=== PATIENT | male | born 1950 | race Caucasian/White ===

== ENCOUNTER 2020-11-09 14:48 | Inpatient (IN) | payer OTHER ==
[~2020-11-09] VITALS: Ht 182.9 cm; Wt 81.2 kg
[2020-11-09 15:56] LABS: BASOPHILS ABSOLUTE AUTO 0.03 K/mm3 (0.00-0.23); BASOPHILS PERCENT AUTO 0 % (0-2); EOSINOPHILS PERCENT AUTO 1 % (0-6); Hematocrit 45.5 % (37.0-53.0); Hemoglobin 15.6 g/dL (13.5-17.5); IMMATURE GRAN ABSOLUTE AUTO 0.03 K/mm3 (0.00-0.10); IMMATURE GRAN PERCENT AUTO 0 % (0-1); LYMPHOCYTES ABSOLUTE AUTO 2.18 K/mm3 (0.84-5.20); LYMPHOCYTES PERCENT AUTO 30 % (21-46); MONOCYTES ABSOLUTE AUTO 0.78 K/mm3 (0.16-1.47); MONOCYTES PERCENT AUTO 11 % (4-13); Mean Corpuscular HGB 32.1 pg (26.0-34.0); Mean Corpuscular HGB Conc 34.3 g/dL (31.5-36.5); Mean Corpuscular Volume 94 fL (80-100); NEUTROPHILS ABSOLUTE AUTO 4.14 K/mm3 (1.96-9.15); NEUTROPHILS PERCENT AUTO 57 % (41-73); Platelet Count 126 K/mm3 (150-400); RDW Coefficient Variation 13.2 % (11.7-14.2); RDW Standard Deviation 44.8 fL (35.1-46.3); Red Blood Cell Count 4.86 M/mm3 (4.30-5.90); White Blood Cell Count 7.26 K/mm3 (4.00-11.30)
[2020-11-09] MEDS ORDERED: FOLI1 PO ×2 (16:00→18:03)
[2020-11-09] MEDS ORDERED: B-1100 M2 PO (16:00)
[2020-11-09 16:10] LABS: International Normalized Ratio 0.97; Prothrombin Time Results 10.5 Sec (9.7-11.5)
[2020-11-09 16:16] LABS: Alanine Aminotransfer (ALT/SGP 34 U/L (12-78); Albumin/Globulin Ratio 1.1 (0.8-1.8); Alk Phos 69 U/L (50-136); Anion Gap 3 mmol/L (6-16); Aspartate Aminotrans (AST/SGOT 31 U/L (12-37); Bilirubin, Total 0.7 mg/dL (0.1-1.0); Blood Urea Nitrogen 15 mg/dL (8-24); CO2, Blood 28 mmol/L (21-32); Calcium, Blood 9.1 mg/dL (8.5-10.1); Chloride, Blood 106 mmol/L (98-108); Creatinine, Blood 0.94 mg/dL (0.60-1.20); Ethanol (Alcohol), Blood, Med <3 mg/dL; Globulin, Blood 3.7 g/dL (2.2-4.0); Glomerular Filtration Rate >60 (60-); Glucose, Blood 101 mg/dL (70-99); Magnesium, Blood 2.1 mg/dL (1.6-2.4); Potassium, Blood 3.7 mmol/L (3.5-5.5); Sodium, Blood 137 mmol/L (136-145); Total Protein, Blood 7.7 g/dL (6.4-8.2); Troponin I <0.015 ng/mL (0.000-0.040)
[2020-11-09 17:06] LABS: Source, Urine Clean Catch
[2020-11-09 17:35] LABS: Appearance, Urine Clear (Clear); Bilirubin, Urine Neg (Neg); Blood, Urine Neg (Neg); Color, Urine Yellow (P-Yellow); Glucose Qualitative, Urine Neg (Neg); Ketones, Urine 1+ (Neg); Leukocyte Esterase, Urine 1+ (Neg); Nitrite, Urine Neg (Neg); Protein, Urine Neg (Neg); Specific Gravity, Urine 1.015 (1.003-1.022); Urobilinogen, Urine NORM (Normal)
[2020-11-09] MEDS ORDERED: GABA600 PO (17:59)
[2020-11-09] MEDS ORDERED: NEURONTIN300 MG PO (18:00)
[2020-11-09] MEDS ORDERED: Hydroxyzine HCl50 MG PO (18:01)
[2020-11-09] MEDS ORDERED: XARELTO20 MG PO (18:02)
[2020-11-09] MEDS ORDERED: Naltrexone HCl50 MG PO (18:02)
[2020-11-09] MEDS ORDERED: METO25 PO (18:02)
[2020-11-09] MEDS ORDERED: MULTIPLE VITAM1 EACH PO (18:03)
[2020-11-09] MEDS ORDERED: B-1100 M1 PO (18:03)
[2020-11-09] MEDS ORDERED: MELATONIN5 M1 PO (18:04)
[2020-11-09] MEDS ORDERED: OMEP20ER PO (18:04)
[2020-11-09] MEDS ORDERED: FURO20 PO (18:04)
[2020-11-09] MEDS ORDERED: PROM25 PO (18:04)
[2020-11-09] MEDS ORDERED: ESCI10 PO (18:04)
[2020-11-09] MEDS ORDERED: NORTRIPTYLINE H10 M1 PO (18:04)
[2020-11-09 18:07] LABS: Bacteria Mod /hpf; Red Blood Cells, Urine 0-2 /hpf (0-2); Squamous Epithelial Cells Rare /hpf (Few); White Blood Cells, Urine 0-2 /hpf (0-5)
[2020-11-09 21:11] LABS: Influenza A, PCR NEGATIVE (NEGATIVE); Influenza B, PCR NEGATIVE (NEGATIVE); Resp Syncytial Virus, PCR NEGATIVE (NEGATIVE); SARS-Cov-2 (COVID-19) PCR, MMC NEGATIVE (NEGATIVE)
--- NOTE | 2020-11-10 05:18 | NUR ---
SHIFT SUMMARY RECIEVED PATIENT FROM ED AT APPROXIMETLY 2100. PATIENT FOUND TO BE A&OX3 BUT ACTIVELY HALLUCINATING OTHER PEOPLE IN THE ROOM. TREMORS, SWEATING, ANXIETY, AND AGITATION NOTED ON CIWA. ATIVAN X3 AND LIBRIUM X2 GIVEN OVERNIGHT.AGITATION COMES AND GOES. FOLLOWS COMMANDS AND HINTON. SEIZURE PRECAUTIONS IN PLACE. VSS. ON RA. SR ON THE MONITOR. PASSED BEDSIDE SWALLOW SO STARTED CARDIAC DIET PER MD REQUEST.SOME NAUSEA NOTED AFTER EATING BUT OTHERWISE TOLERATED WELL. UP WITH ONE TO BATHROOM. UNABLE TO COMPLETE ADMISSION UNTIL MENTATION CLEARS. NO ACUTE CONCERNS AT THIS TIME. WILL CONTINUE TO MONITOR.
[2020-11-10 06:17] LABS: BASOPHILS ABSOLUTE AUTO 0.03 K/mm3 (0.00-0.23); BASOPHILS PERCENT AUTO 1 % (0-2); EOSINOPHILS ABSOLUTE AUTO 0.16 K/mm3 (0.00-0.68); EOSINOPHILS PERCENT AUTO 3 % (0-6); Hematocrit 44.3 % (37.0-53.0); Hemoglobin 15.2 g/dL (13.5-17.5); IMMATURE GRAN ABSOLUTE AUTO 0.02 K/mm3 (0.00-0.10); IMMATURE GRAN PERCENT AUTO 0 % (0-1); LYMPHOCYTES ABSOLUTE AUTO 2.07 K/mm3 (0.84-5.20); LYMPHOCYTES PERCENT AUTO 36 % (21-46); MONOCYTES ABSOLUTE AUTO 0.66 K/mm3 (0.16-1.47); MONOCYTES PERCENT AUTO 11 % (4-13); Mean Corpuscular HGB 32.7 pg (26.0-34.0); Mean Corpuscular HGB Conc 34.3 g/dL (31.5-36.5); Mean Corpuscular Volume 95 fL (80-100); Mean Platelet Volume 10.2 fL (9.1-12.4); NEUTROPHILS ABSOLUTE AUTO 2.89 K/mm3 (1.96-9.15); NEUTROPHILS PERCENT AUTO 50 % (41-73); Platelet Count 115 K/mm3 (150-400); RDW Coefficient Variation 13.2 % (11.7-14.2); RDW Standard Deviation 46.2 fL (35.1-46.3); Red Blood Cell Count 4.65 M/mm3 (4.30-5.90); White Blood Cell Count 5.83 K/mm3 (4.00-11.30)
[2020-11-10 06:43] LABS: Anion Gap 2 mmol/L (6-16); Blood Urea Nitrogen 10 mg/dL (8-24); Bun/Creatinine Ratio 11.3 (12.0-20.0); CO2, Blood 31 mmol/L (21-32); Calcium, Blood 8.5 mg/dL (8.5-10.1); Chloride, Blood 106 mmol/L (98-108); Creatinine, Blood 0.89 mg/dL (0.60-1.20); Glomerular Filtration Rate >60 (60-); Glucose, Blood 108 mg/dL (70-99); Potassium, Blood 3.9 mmol/L (3.5-5.5); Sodium, Blood 139 mmol/L (136-145)
--- NOTE | 2020-11-10 09:09 | NUR ---
ASSUMED CARE FROM LILIANE RN, MORNING UPDATE PT WAS AWAKE DURING REPORT. PT IS ALERT AND ORIENTED THIS MORNING. PT WAS ABLE TO TAKE MORNING MEDICATION AND HAVE BREAKFAST WITHOUT ISSUES OF ASPIRATION, BEDSIDE SWALLOW STUDY WAS COMPLETED BY LILIANE SHIFT RN, SPEECH THERAPY TO EVALUATE PT TODAY. PT IS CONCERNED ABOUT HIS BELONGINGS BEING KEPT AT [facility], HE HAS BEEN REMINDED FREQUENTLY THAT THEY ARE LOCKED UP AT [facility] AND ARE NOT HERE AT THE HOSPITAL WITH HIM. VS STABLE, CIWA COMPLETED DURING MORNING ASSESSMENT. PT RESTING IN BED AT THIS TIME
--- NOTE | 2020-11-10 10:42 | NUR ---
RECEIVED REPORT FROM OFF GOING RN AND ASSUMED CARE OF THE PT. HE IS SITTING UP IN BED WATCHING TV. HE DENIES ANY DISCOMFORT AT THIS TIME. HE CONTINUES TO BE IMPULSIVE BUT IS REDIRECTABLE. HE IS VISIBLE FROM THE NURSES STATION WITH FREQUENT ROUNDING.
--- NOTE | 2020-11-10 17:38 | NUR ---
Shift Summary Pt has been alert to himself and the situation at times today. He can tell you that he is in a hospital but not which one or what city we are in. He has been asking about his belongings and a call was made to [facility] to see if they have his bag there with no answer as of now. He has a very good appetite. He takes his meds with no issues and his iv meds/fluids have been infusing as ordered. He does continue to be impulsive and try to get out of bed at times but for the most part he calls for help when he needs something. He has the urinal at the bedside and the call light in reach. Last CIWA was 4.
--- NOTE | 2020-11-11 00:47 | NUR ---
SHIFT SUMMARY PATIENT FOUND TO A&OX4, HINTON, AND FOLLOWING COMMANDS. CIWA SCORE 0 AND VERY PLEASANT THIS SHIFT. VSS. ON RA. NSR ON THE MONITOR. NO PAIN OR DISTRESS NOTED UPON ASSESSMENT. IV ABX AND FLUIDS INFUSING PER ORDER. UP WITH ONE ASSIST TO BATHROOM BUT HAS URGENCY AND INCONTINENCE AT TIMES.ATTENDS IN PLACE. FALL AND SWALLOW PRECAUTIONS IN PLACE. REPORT GIVEN TO CLARITZA ON MEDICAL FLOOR AND CARE ENDORSED CARE TO HER @ 3703.
--- NOTE | 2020-11-11 00:58 | NUR ---
PT TX FROM PCU TO ROOM 309. THIS RN ASSUMES CARE OF PT AT THIS TIME.
[2020-11-11 04:44] LABS: BASOPHILS ABSOLUTE AUTO 0.03 K/mm3 (0.00-0.23); BASOPHILS PERCENT AUTO 1 % (0-2); EOSINOPHILS ABSOLUTE AUTO 0.17 K/mm3 (0.00-0.68); EOSINOPHILS PERCENT AUTO 3 % (0-6); Hematocrit 43.8 % (37.0-53.0); Hemoglobin 15.2 g/dL (13.5-17.5); IMMATURE GRAN ABSOLUTE AUTO 0.02 K/mm3 (0.00-0.10); IMMATURE GRAN PERCENT AUTO 0 % (0-1); LYMPHOCYTES ABSOLUTE AUTO 1.96 K/mm3 (0.84-5.20); LYMPHOCYTES PERCENT AUTO 32 % (21-46); MONOCYTES ABSOLUTE AUTO 0.72 K/mm3 (0.16-1.47); MONOCYTES PERCENT AUTO 12 % (4-13); Mean Corpuscular HGB 33.2 pg (26.0-34.0); Mean Corpuscular HGB Conc 34.7 g/dL (31.5-36.5); Mean Corpuscular Volume 96 fL (80-100); Mean Platelet Volume 10.6 fL (9.1-12.4); NEUTROPHILS PERCENT AUTO 53 % (41-73); Platelet Count 115 K/mm3 (150-400); RDW Coefficient Variation 13.2 % (11.7-14.2); RDW Standard Deviation 46.4 fL (35.1-46.3); Red Blood Cell Count 4.58 M/mm3 (4.30-5.90)
[2020-11-11 04:59] LABS: Anion Gap -1 mmol/L (6-16); Blood Urea Nitrogen 8 mg/dL (8-24); Bun/Creatinine Ratio 7.4 (12.0-20.0); CO2, Blood 32 mmol/L (21-32); Calcium, Blood 8.2 mg/dL (8.5-10.1); Chloride, Blood 108 mmol/L (98-108); Creatinine, Blood 1.08 mg/dL (0.60-1.20); Glomerular Filtration Rate >60 (60-); Glucose, Blood 94 mg/dL (70-99); Potassium, Blood 4.5 mmol/L (3.5-5.5); Sodium, Blood 139 mmol/L (136-145)
--- NOTE | 2020-11-11 05:46 | NUR ---
PT TX FROM PCU THIS SHIFT, A/O, FOGETFUL AT TIMES. TELE MONITOR IN SR. SWALLOW AND SEIZURE PRECAUIONS. USES CANE WITH 1-ASSIST TO AMBULATE. PT BELONGINGS ARE STILL AT [facility]. PT TO HAVE BARIUM SWALLOW THURSDAY.
--- NOTE | 2020-11-11 19:09 | NUR ---
SHIFT SUMMARY: PT A&O; INCREASING ANXIETY ; MEDICATED PER EMAR; COOPERATIVE WITH CARE. POOR ORAL INTAKE THIS SHIFT. PER ART HISTORY INSTRUCTOR, 6-BEAT RUN OF V-TACH; DR NAZARIO; BETA MICHA ADDED. IV ABX & BANANA BAG CONTINUING. REPORT GIVEN TO ONCOMING RN.
--- NOTE | 2020-11-12 05:46 | NUR ---
PT IS A/O, FORGETFUL AT TIMES, WORRIED THAT HIS BELONGINGS ARE AT [facility] WHERE HE CAME FROM. PT DID BECOME ANXIOUS WITH TREMORS EARLY THIS AM AND A LIBRIUM WAS GIVEN PER EMAR. BARIUM SWALLOW EXPECTED TODAY, PT IS ON SEIZURE AND SWALLOW PRECAUTIONS, NECTAR THICK LIQUIDS. TELE IN SR.
--- NOTE | 2020-11-12 18:18 | NUR ---
SHIFT SUMMARY- PT IS A/O, PLESANT AND COOPERATIVE. HE IS EATING AND DRINKING WELL. HE IS RECIEVING IV ABX. HIS CIWAS WERE D/C THIS SHIFT. HE IS USING THE URINAL. HIS BED IS IN THE LOW POSITION AND CALL LIGHT IS WITIN REACH.
--- NOTE | 2020-11-13 04:13 | NUR ---
SHIFT SUMMARY NO ACUTE CHANGES THIS SHIFT, REFUSED PO FLUIDS, STATING THAT THE THICKENED "DOESN'T QUENCH MY THIRST," SLEPT T/O THE SHIFT, WAKING EASILY FOR CARE THEN RETURNING TO SLEEP, BELONGINGS DROPPED OFF TO PT'S ROOM TONIGHT (IPAD, WATCH, TUTORING ASSISTANT, BOOKS & WALLET), PT AWARE; SLEEPING AT THIS TIME, CALL LIGHT IN REACH, WILL CONT TO MONITOR UNTIL REPORT GIVEN TO DAY RN.
--- NOTE | 2020-11-13 17:59 | NUR ---
SHIFT SUMMARY- PT IS A/O, PLESANT AND COOPERATIVE. HE WENT FOR A MODIFIED SWALLOW EVALUATION AND IT WAS DETERMINED THAT HE WAS UNABLE TO PROTECT HIS AIRWAY. PT WILL HAVE A PEG TUBE PLACED. HE IS AWAITING CONSULTATION WITH DR. DUNCAN. HE IS RECIEVING IV FLUIDS. HIS BED IS IN THE LOW POSITION AND CALL LIGHT IS WITIN REACH.
--- NOTE | 2020-11-13 23:14 | NUR ---
PATIENT APPEARS COMFORTABLE WITH EYES CLOSED. RESPIRATIONS NONLABORED. NO APPARENT DISTRESS. NO NEEDS AT THIS TIME. WILL CONTINUE TO MONITOR.
--- NOTE | 2020-11-14 04:27 | NUR ---
RN CLINICAL RESOURCE SUMMARY PT A/O X 4. PT SLEPT THROUGHOUT NIGHT WITH NO COMPLAINTS OF PAIN THROUGHOUT SHIFT, NO APPARENT DISTRESS, VITAL SIGNS STABLE. PT EXHIBITED NO SYMPTOMS OF ETOH WITHDRAWAL. WILL CONTINUE TO MONITOR.
--- NOTE | 2020-11-14 04:56 | NUR ---
I AGREE WITH CINDY CALDERON PRINTS AND DRAWINGS CURATOR DOCUMENTATION. RAMONA LEVINE RN
--- NOTE | 2020-11-14 13:46 | NUR ---
Met with pt at the request of Medical floor RN. Pt failed his swallow study, and has been scheduled for a feeding tube placement this afternoon. Pt was hospitalized on 11/09 after beginning an alcohol detox program through [facility], when he began stumbling, and exhibiting s/s of acute alcohol withdrawal. He has been successfully detoxed off alcohol, but developed aspiration pneumonia. He had a PEG tube in the past, but it was only used for a short time. It sounds like this tube will likely be permanent. This was the reason for the referral; pt is extremely anxious about managing the feeding tube, and not eating for the remainder of his life. He states he feels like this will limit him from doing any hiking or swimming also. We explored this a bit more, and it turns out he has fear that the tube will simply hang from the hole in his skin, and he will not be able to secure it in any way. I used drawing and visualization to explain to him he can absolutely do those things, that there are easy and discreet ways to secure the tubing against the body. This information seemed to greatly relieve the patient. Plan to follow up with him after his PEG is placed. He states he's looking forward to that.
--- NOTE | 2020-11-14 15:31 | NUR ---
INTO SDS VSS ADMISSION TO UNIT STARTED.
--- NOTE | 2020-11-14 16:44 | NUR ---
11/14/20 1644 [place]ma Lock History, Chart, Medications and Allergies reviewed before start of procedure.Patient confirms NPO status and agrees with scheduled surgery.MONITOR INTACT WITH CONTINUOUS PULSE OXIMETRY AND INTERMITTENT BP.O2 VIA N/C INTACT THROUGHOUT SEDATION/PROCEDURE. See Anesthesia record. PONSKY PULL PEG KIT 20F REFERENCE # [id number], LOT # [id number]
--- NOTE | 2020-11-14 17:13 | NUR ---
SUMMARY PT HAVING A PEG TUBE PLACED RIGHT NOW, PT HAS BEEN PLEASANT AND COOPERATIVE T/O THE DAY, PT ANXIOUS ABOUT PROCEDURE, MED PER EMAR FOR ANXIETY, PALLIATIVE CARE IN TO SPEAK WITH THE PT, ALSO SENIOR PROJECT ENGINEER CAME TO SPEAK WITH THE PT, VSS, WILL WAIT FOR PT TO RETURN TO THE ROOM
--- NOTE | 2020-11-14 18:31 | NUR ---
PT BACK TO THE ROOM AFTER SURGERY AROUND 1800, PT ABLE TO TRANSFER SELF FROM GURNEY TO BED WITH ASSIST, PT UNSTEADY ON HIS FEET, PEG TUBE SITE TO THE L ABD HAS A DRESSING WITH MINIMAL AMOUNT OF BLOOD ON IT, PT DENIES ANY PAIN, PT ASKING FOR "SOMETHING FOR SLEEP" OVER AND OVER, PT MED WITH ATIVAN PER ORDERS, WILL CONTINUE TO MONITOR
--- NOTE | 2020-11-15 03:45 | NUR ---
SUBASSEMBLIES WIRER SUMMARY PT A/O X4. MEDICATED FOR L ABD PAIN-PEG TUBE SURGICAL SITE. DRESSING AT ABD SURGICAL SITE IS C.D.I/ MEDICATED FOR CHRONIC ANXIETY AND "SOMETHING FOR SLEEP" WITH ATIVAN. CONTINUING POST OP VITALS. VITALS STABLE. PT DENIES SOB, CHEST PAIN, NAUSEA. SLEPT ON AND OFF TONIGHT MOSTLY DUE TO POST OP VITAL CHECK. USES URINAL AT BEDSIDE INDEPENDENTLY. CALL LIGHT WITHIN REACH, BED ALARM ON. WILL CONTINUE TO MONITOR.
[2020-11-15 05:30] LABS: Magnesium, Blood 1.8 mg/dL (1.6-2.4)
[2020-11-15 05:31] LABS: Phosphorus, Blood 2.8 mg/dL (2.5-4.9)
--- NOTE | 2020-11-15 10:56 | NUR ---
BEGAN FEEDING THROUGH THE PEG TUBE AT 1100 AT 25 ML/HR AND 3O ML/HR OF WATER. WILL ADVANCE FOOD AND WATER IN 4 HOURS IS PATIENT TOLERATES. SIGNS/SYMPTOMS OF INTOLERANCE WERE EXPLAINED TO THE PATIENT.
--- NOTE | 2020-11-15 15:15 | NUR ---
ADVANCED FEEDING TO 40 ML/HR AT 1500. PATIENT TOLERATED 25 ML/HR FOR 4 HOURS.
--- NOTE | 2020-11-15 17:04 | NUR ---
Met with pt earlier today, around 10am. He did admit to feeling nervous about impending toe amputation to be completed after revascularization. He states he knows he waited longer than he should, and it didn't make him "less scared" by putting it off. He did say he does feel "kind of relieved though, too" to be getting things taken care of. He doesn't spend much time talking, and only speaks to me when he's answering a question I've asked. Will remain available, check back when pt has had amputations completed.
--- NOTE | 2020-11-15 17:23 | NUR ---
Met with pt today for a follow up after his PEG tub placement. He is currently lying in bed, tube feed running in at 25ml/hour to start. He is tolerating it well. He states he has high hopes for returning to life in [place], no longer drinking alcohol, and states he has "plenty of caregiving help" set up through the [place]. He states there is also a nurse on staff who can teach his CG's as well as continue teaching with him on use of PEG tube and feeds. I will remain available for this patient. I wished him well.
--- NOTE | 2020-11-15 18:00 | NUR ---
PATIENT IS ALERT AND ORIENTED AND COOPERATIVE WITH CARE. PATIENT IS ANXIOUS ABOUT THE PEG TUBE, MEDICATED PER EMAR. TUBE FEEDINGS STARTED TODAY, CURRENTLY RUNNING AT 40 ML/HR. NO SIGNS OF INTOLERANCE AT THIS TIME. PATIENT DOES COMPLAIN OF "FEELING COLD" WHILE HIS ORAL TEMPERATURE SHOWS A TEMP OF 100.2, MEDICATED PER EMAR WILL MONITOR. C/O INTERMITTENT PAIN AT THE PEG TUBE SITE. WILL CONTINUE TO MONITOR
--- NOTE | 2020-11-16 04:56 | NUR ---
FURNACE CARETAKER SUMMARY PT A/O X4. PLEASANT AND COOPERATIVE. PT BEEN TOLERATING PEG TUBING WELL, DENIES NAUSEA, ABD. CRAMPING, NO DISTENTION. PEG NUTRITION HAS BEEN INCREASED TO GOAL RATE OF 60ML/HR. PT SLEPT WELL TONIGHT. STATES SURGICAL SITE IS PAINFUL WITH MOVEMENT AND COUGHING. MEDICATED ONCE FOR PAIN THIS AM. ADDITIONAL PILLOW PROVIDED TO ACT A SPLINT WHEN PT COUGHS. CALLS APPROPRIATELY. VSS, NO ACUTE CHANGES, CALL LIGHT WITHIN REACH. WILL CONTINUE TO MONITOR.
[2020-11-16 05:16] LABS: BASOPHILS ABSOLUTE AUTO 0.02 K/mm3 (0.00-0.23); BASOPHILS PERCENT AUTO 0 % (0-2); EOSINOPHILS ABSOLUTE AUTO 0.09 K/mm3 (0.00-0.68); EOSINOPHILS PERCENT AUTO 1 % (0-6); Hematocrit 42.7 % (37.0-53.0); Hemoglobin 15.2 g/dL (13.5-17.5); IMMATURE GRAN ABSOLUTE AUTO 0.03 K/mm3 (0.00-0.10); IMMATURE GRAN PERCENT AUTO 0 % (0-1); LYMPHOCYTES ABSOLUTE AUTO 1.86 K/mm3 (0.84-5.20); LYMPHOCYTES PERCENT AUTO 24 % (21-46); MONOCYTES ABSOLUTE AUTO 1.28 K/mm3 (0.16-1.47); MONOCYTES PERCENT AUTO 16 % (4-13); Mean Corpuscular HGB 32.8 pg (26.0-34.0); Mean Corpuscular HGB Conc 35.6 g/dL (31.5-36.5); Mean Corpuscular Volume 92 fL (80-100); Mean Platelet Volume 10.8 fL (9.1-12.4); NEUTROPHILS ABSOLUTE AUTO 4.62 K/mm3 (1.96-9.15); NEUTROPHILS PERCENT AUTO 59 % (41-73); Platelet Count 143 K/mm3 (150-400); RDW Coefficient Variation 13.1 % (11.7-14.2); RDW Standard Deviation 43.9 fL (35.1-46.3); Red Blood Cell Count 4.63 M/mm3 (4.30-5.90)
[2020-11-16 05:39] LABS: Anion Gap 4 mmol/L (6-16); Blood Urea Nitrogen 10 mg/dL (8-24); Bun/Creatinine Ratio 12.3 (12.0-20.0); CO2, Blood 27 mmol/L (21-32); Calcium, Blood 8.3 mg/dL (8.5-10.1); Chloride, Blood 106 mmol/L (98-108); Creatinine, Blood 0.81 mg/dL (0.60-1.20); Glomerular Filtration Rate >60 (60-); Glucose, Blood 134 mg/dL (70-99); Magnesium, Blood 2.1 mg/dL (1.6-2.4); Phosphorus, Blood 2.4 mg/dL (2.5-4.9); Potassium, Blood 3.5 mmol/L (3.5-5.5); Sodium, Blood 137 mmol/L (136-145)
--- NOTE | 2020-11-16 19:51 | NUR ---
started on bolus feeding today, taught pt to do it himself, but told him the nurse would continue to do it but that he should watch so he will be able to do it himself at home, pt eager to try and held syringe and filled it, discussed care of tube and need to keep tube clean and clear, a+o, saline locked, rm air, call light in reach, no acute changes noted, dr adjusted feeding tube in rm, pt medicated prior to procedure and stated that it was acceptable and reduced the irritation r/tube, bsr shared with noc nurse and pt
--- NOTE | 2020-11-17 05:52 | NUR ---
SHIFT SUMMARY- PT. A&O, S/P PEG TUBE PLACEMENT POD#3. ON GRAVITY BOLUS TF'S, APPEARS TO BE TOLERATING WELL. PER PT. LAST TF WAS DONE LAST NIGHT AT 1900. SCHEDULED FEEDS ARE FOR 4X/DAY(Q4HRS). PT. DECLINED THE NEXT TF DURING THE NIGHT. MEDS GIVEN VIA PEG WITH 30ML PRE&POST FLUSH W/O DIFFICULTY. PT. HAD NO COMPLAINTS OF PAIN OR DISCOMFORT DURING THE NIGHT. PT. REQUESTED IV ATIVAN LAST NIGHT FOR SLEEP. INFORMED PT. ONLY PO ATIVAN AVAILABLE PER ORDER AND OFFERED TO GIVE VIA PEG TUBE. PT. VOICED FRUSTRATION AND REFUSED, STATED WOULD GO TO SLEEP ON HIS OWN. THIS NURSE ALSO OFFERED OTHER ALTERNATIVES, PT. DECLINED. DENIED ANY OTHER NEEDS T/O THE SHIFT, VSS. CALL LIGHT WITHIN REACH AND SIDE RAILS UPX2. WILL CONT TO MONITOR.
--- NOTE | 2020-11-17 16:57 | NUR ---
SHIFT SUMMARY PATIENT DENIES PAIN, NAUSEA, AND SHORTNESS OF BREATH. PATIENT TENDER AND RED AROUND PEG TUB SITE. UP SBA W/FWW. WORKED WITH PT AND OT. AMBULATED IN [place] WITH STAFF. TOLERATING BOLUS FEEDS WELL. PATIENT ADMINISTERING TUBE FEEDS HIMSELF WITH SUPERVISION AND COACHING. PLEASANT AND COOPERATIVE WIHT CARE.
--- NOTE | 2020-11-18 05:25 | NUR ---
SHIFT SUMMARY- NO ACUTE EVEVTS OVERNIGHT. PT. HAD 350ML WATER FLUSH LAST NIGHT, HAD MINIMAL RESIDUAL. TOLERATED WELL. REFUSED LAST FEEDING OF THE NIGHT, STATED FELT FULL. NO COMPLAINTS T/O THE NIGHT, ASLEEP MOST OF THE NIGHT. NO APPARENT DISTRESS NOTED, VSS. CALL LIGHT WITHIN REACH AND SIDE RAILS UPX2. WILL CONT TO MONITOR.
--- NOTE | 2020-11-18 16:27 | NUR ---
SHIFT SUMMARY PATIENT DENIES PAIN, NAUSEA, AND SHORTNESS OF BREATH. PATIENT STAND BY ASSIST TO BATHROOM WITH FRONT WHEEL WALKER. PATIENT ABLE TO DO OWN TUBE FEEDINGS WITH SUPERVISION. TOLERATING FEEDINGS WELL. DRESSING CHANGED AROUND TUBE. PLEASANT AND COOPERATIVE WITH CARE. EXPECTED DISCHARGE TOMORROW.
--- NOTE | 2020-11-19 05:20 | NUR ---
SHIFT SUMMARY- PT. HAD 350ML WATER FLUSH LAST NIGHT VIA PEG TUBE, TOLERATED WELL. DENIED NIGHT TIME FEEDING. ATIVAN GIVEN PER PT. REQUEST, STATED HELPS WITH SLEEP. NO COMPLAINTS OF PAIN OF DISCOMFORT DURING THE NIGHT. INDEPENDENTLY AMBULATING IN ROOM W/O DIFFICULTY. PT. SLEPT T/O THE NIGHT, VSS. ANTICIPATING D/C TODAY. CALL LIGHT WITHIN REACH AND SIDE RAILS UPX2. WILL CONT TO MONITOR.
--- NOTE | 2020-11-19 16:46 | NUR ---
SHIFT SUMMARY PATIENT DENIES PAIN, NAUSEA, AND SHORTNESS OF BREATH. PATIENT INDEPENDENT IN ROOM WITH WALKER. PATIENT CONTINUES TO DO OWN TUBE FEEDINGS AND WATER BOLUS BY HIMSELF WITH SUPERVISION. PATIENT TOLERATING FEEDINGS WELL. SCHEDULED DISCHARGE FOR 9AM TOMORROW MORNING. PLEASANT AND COOPERATIVE WITH CARE.
--- NOTE | 2020-11-19 22:37 | NUR ---
ASSUMPTION OF CARE. AOX3, INDEPENDENT IN THE ROOM. DOING WELL, HAS BEEN MANAGING HIS OWN PEG TUBE. HE FLUSHED IT TONIGHT BUT DID NOT DO THE LAST FEEDING HE STILL FELT FULL. DID DEMENSTRATE HOW TO CRUSH AND DISSOLVE MEDS AND ADMINISTER THEM VIA PEG TUBE. HE HAS A GOOD HANDLE ON HOW TO DO HIS FEEDING AND CARE. APPLIED A FELCRO STRAP TO THE TUBE SO IT DOES NOT HANG DOWN AND GET CAUGHT IN HIS PANTS AGAIN. SKIN AROUND SIGHT IS SLIGHT PINK. DENIED ANY PAIN OR DISCOMFORT. TOOK SHOWER WITH NO PROBLEM. CALL LIGHT IS IN REACH.
--- NOTE | 2020-11-20 05:49 | NUR ---
SHIFT SUMMARY: AOX3, INDEPENDENT. INDEPENDENT WITH TUBE FEEDING, FOLLOWING DIRECTIONS, DOES FLUSHES PRESCRIBED. VERBALIZES UNDERSTANDING WITH MEDICATION ADMINISTRATION. PEG SITE SLIGHTLY RED, DRAINAGE SEROUS SANGUOUS. NO PAIN. VSS/AFEBRILE. SLEPT WELL. READY TO GO HOME. PLANNED RIDE WILL ARRIVE AROUND 9AM. CALL LIGHT IN REACH AND USED APPROPRIATLY.
[2020-11-20] MEDS ORDERED: GABA300 PO (07:45)
== END 2020-11-20 08:51 | disposition home health service (06) | DRG 896 ==
LOC: ER 14:48 → ERHOLD 17:49 → MEDS 17:49 → PCU 18:30 → MEDS 11-11 00:50
PROVIDERS: Emergency Medicine; Internal Medicine; Internal Medicine Gastroenterology; ADMIT Family Medicine
PROC: 0DH63UZ Insertion of Feeding Device into Stomach, Percutaneous Approach (ICD-10-PCS; principal; 2020-11-14 16:30)
DX: F10.231 Alcohol dependence with withdrawal delirium (principal); J69.0 Pneumonitis due to inhalation of food and vomit; R13.12 Dysphagia, oropharyngeal phase; F41.9 Anxiety disorder, unspecified; F32.9 Major depressive disorder, single episode, unspecified; Z86.718 Personal history of other venous thrombosis and embolism; D69.59 Other secondary thrombocytopenia; Z20.822 Contact with and (suspected) exposure to COVID-19; Z86.711 Personal history of pulmonary embolism; Z88.8 Allergy status to other drugs, medicaments and biological substances; Z79.899 Other long term (current) drug therapy; F17.210 Nicotine dependence, cigarettes, uncomplicated; K21.9 Gastro-esophageal reflux disease without esophagitis; E11.42 Type 2 diabetes mellitus with diabetic polyneuropathy; Z86.74 Personal history of sudden cardiac arrest; K22.8 Other specified diseases of esophagus; K44.9 Diaphragmatic hernia without obstruction or gangrene
CPT/HCPCS: 0241U; 36415; 71045; 74018; 74230; 80048; 80053; 81001; 82140; 82947; 83605; 83735; 84100; 84145; 84484; 85025; 85610; 87040; 87077; 87086; 87186; 92526; 92610; 92611; 93005; 93010; 94760; 96360; 96361; 97116; 97162; 97530; 99285-25; A9270; G0480; J0295; J2001; J2060; J2270; J2704; J3010; J3411; J3475; J7030; J7042; J7050; J7120